=== PATIENT | male | born 1955 | race Caucasian/White ===

== ENCOUNTER 2017-11-16 09:56 | Outpatient (CLI) ==
[2015-07-24 10:24] VITALS: BMI 31.1
--- NOTE | 2017-11-16 10:37 | DI ---
EXAM: Two views of the chest. History: Chronic obstructive pulmonary disease and bronchitis. Comparison: Chest radiograph 07/24/2015 Findings: Heart size is within normal limits. No focal consolidation. No appreciable pleural fluid and no pneumothorax. Calcified granulomas again seen within the thorax. No acute osseous abnormali ties. Impression: No acute cardiopulmonary process.
== END 2017-11-16 09:57 | disposition home or self-care (01) ==
LOC: RAD 09:56
PROVIDERS: ATTEND Physician Assistant Medical
DX: J44.9 Chronic obstructive pulmonary disease, unspecified (principal)

== ENCOUNTER 2018-07-05 09:33 | Outpatient (CLI) ==
[2015-07-24 10:24] VITALS: BMI 31.1
--- NOTE | 2018-07-05 11:29 | DI ---
EXAM: Right knee four views HISTORY: Pain COMPARISON: None FINDINGS: No fracture or dislocation. Small tricompartmental osteophytes. Mild narrowing medial an d patellofemoral compartments. No joint effusion. Atherosclerotic vascular calcification. IMPERSSION: Mild tricompartmental osteoarthritis.
== END 2018-07-05 09:34 | disposition home or self-care (01) ==
LOC: RAD 09:33
PROVIDERS: ATTEND Physician Assistant
DX: M25.561 Pain in right knee (principal)

== ENCOUNTER 2018-09-14 11:09 | Outpatient (CLI) ==
[2015-07-24 10:24] VITALS: BMI 31.1
== END 2018-09-14 11:10 | disposition home or self-care (01) ==
LOC: CAR 11:09
PROVIDERS: ATTEND Surgery
DX: C44.99 Other specified malignant neoplasm of skin, unspecified (principal)
CPT/HCPCS: 93005; 93010